=== PATIENT | male | born 1995 | race Two or more races ===

== ENCOUNTER 2021-10-18 14:13 | Emergency (ER) | payer BC ==
[~2021-10-18] VITALS: Ht 177.8 cm; Wt 61.0 kg
[2021-10-18] MEDS ORDERED: GABA-532 MT (14:31)
[2021-10-18] MEDS ORDERED: DIPHENHYDRAMINE 25MG CAPSULE PO ONE (15:15)
[2021-10-18] MEDS ORDERED: BUPRENORPHINE 8MG SL TABLET SL ONE ×2 (15:15→15:30)
[2021-10-18] MEDS ORDERED: CLONIDINE 0.1MG TABLET PO ONE (15:15)
[2021-10-18 19:45] VITALS: BP 107/60
== END 2021-10-18 20:05 | disposition home or self-care (01) ==
LOC: ER 14:13
DX: F11.23 Opioid dependence with withdrawal (principal); F41.9 Anxiety disorder, unspecified
CPT/HCPCS: 93005; 99283; Q0163; Z7610